=== PATIENT | female | born 1990 | race Caucasian/White ===

== ENCOUNTER → 2017-10-03 | Emergency (ER) | payer SELFPAY ==
[~2017-10-03] VITALS: Ht 160 cm; Wt 57.6 kg
[~2017-10-03] MED LIST: FAMOTIDINE (20 MG) 20 MG TABLET PO ONE; FAMOTIDINE/PF INJ 20 MG/2 ML VIAL IV ONE; methylPREDNISolone SOD SUCC 125 MG/2ML VIAL IV ONE; methylPREDNISolone SOD SUCC 125 MG/2ML VIAL ONE; predniSONE 20 MG TABLET PO ONE
--- NOTE | 2017-10-03 16:15 | NUR ---
PT REC'D TO ER C/O SORE THROAT IV STARTED 20G RT AC AWAITING EVALUATION BY ER PROVIDER.
--- NOTE | 2017-10-03 16:25 | NUR ---
MEDS GIVEN PER MD ORDER VSS
[2017-10-03 16:40] VITALS: BP 121/72
--- NOTE | 2017-10-03 17:00 | NUR ---
PT. VERBALIZED UNDERSTANDING OF AFTERCARE INSTRUCTIONS.IV removed. Catheter intact and site benign. Pressure and 4x4 applied to site. No bleeding noted.Patient discharged to home in stable condition. Written and verbal after care instructions given. Patient verbalizes understanding of instruction.IV removed. Catheter intact and site benign. Pressure and 4x4 applied to site. No bleeding noted.
== END | disposition home or self-care (01) ==
LOC: ER 15:53
DX: T78.49XA Other allergy, initial encounter (principal); X58.XXXA Exposure to other specified factors, initial encounter; J45.909 Unspecified asthma, uncomplicated
CPT/HCPCS: 96374; 96375; 99284; A4606; J2930; J3490; J7030; Z7610